=== PATIENT | female | born 1955 | race Hispanic/Latino ===

== ENCOUNTER 2019-11-23 14:02 | Emergency (ER) | payer OTHER, MEDICARE ==
[2019-11-23 14:08] VITALS: BP 106/64
[2019-11-23 16:02] LABS: Basophils # (Auto) 0.1 K/mm3 (0.0-0.1); Basophils % (Auto) 0.4 % (0.0-1.8); Eosinophils # (Auto) 0.2 K/mm3 (0.0-0.4); Eosinophils % (Auto) 1.3 % (0.0-4.3); Hematocrit 46.6 % (30.3-42.9); Hemoglobin 15.8 gm/dl (10.1-14.3); Lymphocytes # (Auto) 3.1 K/mm3 (1.2-5.4); Lymphocytes % (Auto) 22.6 % (13.4-35.0); Mean Corpuscular HGB Conc 34 % (30-34); Mean Corpuscular Volume 96 fl (79-97); Monocytes # (Auto) 0.6 K/mm3 (0.0-0.8); Monocytes % (Auto) 4.4 % (0.0-7.3); Platelet Count 293 K/mm3 (140-440); Red Blood Count 4.83 M/mm3 (3.65-5.03); Red Cell Distribution Width 13.7 % (13.2-15.2)
[2019-11-23] MEDS ORDERED: traMADol 50 MG TAB PO ONE (16:10)
[2019-11-23] MEDS ORDERED: DIPHtheria,PERTUSSIS(ACELL),TETANUS VACCINE/PF 0.5 ML VIAL IM ONE (16:10)
[2019-11-23 16:14] LABS: INR 0.94 (0.87-1.13); Partial Thromboplastin Time 25.2 Sec. (24.2-36.6)
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
[2019-11-23 16:25] LABS: Albumin 4.6 g/dL (3.9-5); Calcium 10.5 mg/dL (8.4-10.2)
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
== END 2019-11-23 20:19 | disposition home or self-care (01) ==
LOC: ED 14:02
DX: S20.319A Abrasion of unspecified front wall of thorax, initial encounter (principal); M25.511 Pain in right shoulder; R10.30 Lower abdominal pain, unspecified; R91.1 Solitary pulmonary nodule; M79.645 Pain in left finger(s); F17.200 Nicotine dependence, unspecified, uncomplicated; Z79.899 Other long term (current) drug therapy; V49.59XA Passenger injured in collision with other motor vehicles in traffic accident, initial encounter; W22.10XA Striking against or struck by unspecified automobile airbag, initial encounter; Y93.89 Activity, other specified; Y92.410 Unspecified street and highway as the place of occurrence of the external cause; Y99.8 Other external cause status
CPT/HCPCS: 36415; 71260; 73030; 73130; 74177; 80053; 83690; 85025; 85610; 85730; 90471; 90715; 99284; Q9967

== ENCOUNTER 2020-10-19 10:25 | Emergency (ER) | payer MEDICARE ==
[2020-10-19 11:11] VITALS: BP 134/65
--- NOTE | 2020-10-19 11:56 | Emergency Department Report ---
- General Chief complaint: Skin Rash Stated complaint: RASH Time Seen by Provider: 10/19/20 11:50 Source: patient Mode of arrival: Ambulatory Limitations: No Limitations - History of Present Illness Initial comments: Patient is a 65-year-old female presents emergency room with complaints of a rash that began 2 weeks ago. She states that the rash itches and mcnally. She states that she has been using cortisone ointment and Benadryl [id number] without much relief. She denies anyone else with the same rash. She states that they did recently just get a new couch and loveseat from another person. she states that also her grandchildren frequently play outside. She denies any new soaps, lotions, detergents, medications, antibiotics. Past medical history of COPD. No allergies to medications. - Related Data Previous Rx's Medication Instructions Recorded Last Taken Type Naproxen [EC-Naprosyn] 500 mg PO BID PRN #14 tablet. 11/23/19 Unknown Rx methOCARBAMOL [Robaxin TAB] 500 mg PO BID PRN #12 tab 11/23/19 Unknown Rx Prednisone [predniSONE 10 mg 10 mg PO .TAPER #1 tab.ds.pk 10/19/20 Unknown Rx (6-Day Pack, 21 Tabs)] Triamcinolone 0.1% [Kenalog 0.1% 1 applic TP TID #1 tube 10/19/20 Unknown Rx CREAM] hydrOXYzine HCL [Atarax] 25 mg PO Q6HR PRN #12 tablet 10/19/20 Unknown Rx Allergies Allergy/AdvReac Type Severity Reaction Status Date / Time No Known Allergies Allergy Unverified 11/23/19 14:03 Abscess Boil HPI - HPI Chief Complaint: Skin Rash Stated Complaint: RASH Time Seen by Provider: 10/19/20 11:50 Home Medications: Previous Rx's Medication Instructions Recorded Last Taken Type Naproxen [EC-Naprosyn] 500 mg PO BID PRN #14 tablet. 11/23/19 Unknown Rx methOCARBAMOL [Robaxin TAB] 500 mg PO BID PRN #12 tab 11/23/19 Unknown Rx Prednisone [predniSONE 10 mg 10 mg PO .TAPER #1 tab.ds.pk 10/19/20 Unknown Rx (6-Day Pack, 21 Tabs)] Triamcinolone 0.1% [Kenalog 0.1% 1 applic TP TID #1 tube 10/19/20 Unknown Rx CREAM] hydrOXYzine HCL [Atarax] 25 mg PO Q6HR PRN #12 tablet 10/19/20 Unknown Rx Allergies/Adverse Reactions: Allergies Allergy/AdvReac Type Severity Reaction Status Date / Time No Known Allergies Allergy Unverified 11/23/19 14:03 ED Review of Systems ROS: Stated complaint: RASH Other details as noted in HPI Comment: All other systems reviewed and negative ED Past Medical Hx - Past Medical History Previous Medical History?: Yes Hx Asthma: Yes Hx COPD: Yes Additional medical history: EMPHYSEMA - Surgical History Past Surgical History?: Yes Additional Surgical History: SINUS / BLADDER, hyst - Social History Smoking Status: Current Every Day Smoker Substance Use Type: None - Medications Home Medications: Home Medications Medication Instructions Recorded Confirmed Last Taken Type Naproxen [EC-Naprosyn] 500 mg PO BID PRN #14 tablet.dr 11/23/19 Unknown Rx methOCARBAMOL [Robaxin TAB] 500 mg PO BID PRN #12 tab 11/23/19 Unknown Rx Prednisone [predniSONE 10 mg 10 mg PO .TAPER #1 tab.ds.pk 10/19/20 Unknown Rx (6-Day Pack, 21 Tabs)] Triamcinolone 0.1% [Kenalog 0.1% 1 applic TP TID #1 tube 10/19/20 Unknown Rx CREAM] hydrOXYzine HCL [Atarax] 25 mg PO Q6HR PRN #12 tablet 10/19/20 Unknown Rx ED Physical Exam - General Limitations: No Limitations General appearance: alert, in no apparent distress - Head Head exam: Present: atraumatic, normocephalic - Eye Eye exam: Present: normal appearance - ENT ENT exam: Present: mucous membranes moist, other (no angioedema) - Respiratory Respiratory exam: Absent: respiratory distress, accessory muscle use - Neurological Exam Neurological exam: Present: alert, oriented X3 - Psychiatric Psychiatric exam: Present: normal affect, normal mood - Skin Skin exam: Present: warm, dry, rash (erythematous macular papular rash present to the chest and right anterior neck there are a few small vesicles, no skin dunuding, no necrosis) ED Course Vital Signs 10/19/20 11:09 Temperature 98.3 F Pulse Rate 72 Respiratory 20 Rate Blood Pressure 134/65 O2 Sat by Pulse 95 Oximetry ED Medical Decision Making - Medical Decision Making Patient is a 65-year-old female presents emergency room with complaints of a rash that began 2 weeks ago. She states that the rash itches and mcnally. She states that she has been using cortisone ointment and Benadryl [id number] without much relief. She denies anyone else with the same rash. She states that they did recently just get a new couch and loveseat from another person. she states that also her grandchildren frequently play outside. She denies any new soaps, lotions, detergents, medications, antibiotics. Past medical history of COPD. No allergies to medications. Vitals are stable. On exam:erythematous macular papular rash present to the chest and right anterior neck there are a few small vesicles, no skin dunuding, no necrosis. Examination appears consistent with a possible poison gi dermatitis. Patient given prescription for medications. Advised patient Please use medication as prescribed. Follow- up with your primary care doctor for reexamination. Return to emergency room immediately for any new or worsening symptoms. Critical care attestation.: If time is entered above; I have spent that time in minutes in the direct care of this critically ill patient, excluding procedure time. ED Disposition Clinical Impression: Rash Disposition: DC-01 TO HOME OR SELFCARE Is pt being admited?: No Does the pt Need Aspirin: No Condition: Stable Instructions: Contact Dermatitis, [id number] Additional Instructions: Please use medication as prescribed. Follow-up with your primary care doctor for reexamination. Return to emergency room immediately for any new or worsening symptoms. Prescriptions: hydrOXYzine HCL [Atarax] 25 mg PO Q6HR PRN #12 tablet PRN Reason: Itching Triamcinolone 0.1% [Kenalog 0.1% CREAM] 1 applic TP TID #1 tube Prednisone [predniSONE 10 mg (6-Day Pack, 21 Tabs)] 10 mg PO .TAPER #1 tab.ds.pk Referrals: your, primary care doctor [Other] - 2-3 Days Time of Disposition: 11:54 Print Language: MALTESE
== END 2020-10-19 12:45 | disposition home or self-care (01) ==
LOC: ED 10:25
DX: R21 Rash and other nonspecific skin eruption (principal); J44.9 Chronic obstructive pulmonary disease, unspecified; F17.200 Nicotine dependence, unspecified, uncomplicated
CPT/HCPCS: 99281

== ENCOUNTER 2020-10-25 09:11 | Emergency (ER) | payer MEDICARE ==
[2020-10-25 09:45] VITALS: BP 148/71
--- NOTE | 2020-10-25 10:42 | Emergency Department Report ---
- General Chief complaint: Skin Rash Stated complaint: RASH Time Seen by Provider: 10/25/20 10:24 Source: patient Mode of arrival: Ambulatory Limitations: No Limitations - History of Present Illness Initial comments: Patient is a 65-year-old female who presents emergency room complaints of a rash to the chest and the neck that began 3 weeks ago. Patient was evaluated in the emergency department approximately a week ago and placed on triamcinolone, prednisone, hydroxyzine. she states that it kept the rash from spreading but has not gone away. She has not seen her primary care doctor or hogshead opener. She states that the rash itches and mcnally. She denies any fever, nausea, vomiting, diarrhea, drainage, chills. Past medical history of COPD. No allergies to medications. - Related Data Previous Rx's Medication Instructions Recorded Last Taken Type Naproxen [EC-Naprosyn] 500 mg PO BID PRN #14 tablet. 11/23/19 Unknown Rx methOCARBAMOL [Robaxin TAB] 500 mg PO BID PRN #12 tab 11/23/19 Unknown Rx Prednisone [predniSONE 10 mg 10 mg PO .TAPER #1 tab.ds.pk 10/19/20 Unknown Rx (6-Day Pack, 21 Tabs)] Triamcinolone 0.1% [Kenalog 0.1% 1 applic TP TID #1 tube 10/19/20 Unknown Rx CREAM] hydrOXYzine HCL [Atarax] 25 mg PO Q6HR PRN #12 tablet 10/19/20 Unknown Rx Allergies Allergy/AdvReac Type Severity Reaction Status Date / Time No Known Allergies Allergy Verified 10/25/20 09:42 Abscess Boil HPI - HPI Chief Complaint: Skin Rash Stated Complaint: RASH Time Seen by Provider: 10/25/20 10:24 Home Medications: Previous Rx's Medication Instructions Recorded Last Taken Type Naproxen [EC-Naprosyn] 500 mg PO BID PRN #14 tablet. 11/23/19 Unknown Rx methOCARBAMOL [Robaxin TAB] 500 mg PO BID PRN #12 tab 11/23/19 Unknown Rx Prednisone [predniSONE 10 mg 10 mg PO .TAPER #1 tab.ds.pk 10/19/20 Unknown Rx (6-Day Pack, 21 Tabs)] Triamcinolone 0.1% [Kenalog 0.1% 1 applic TP TID #1 tube 10/19/20 Unknown Rx CREAM] hydrOXYzine HCL [Atarax] 25 mg PO Q6HR PRN #12 tablet 10/19/20 Unknown Rx Allergies/Adverse Reactions: Allergies Allergy/AdvReac Type Severity Reaction Status Date / Time No Known Allergies Allergy Verified 10/25/20 09:42 ED Review of Systems ROS: Stated complaint: RASH Other details as noted in HPI Comment: All other systems reviewed and negative ED Past Medical Hx - Past Medical History Hx Asthma: Yes Hx COPD: Yes Additional medical history: EMPHYSEMA - Surgical History Additional Surgical History: SINUS / BLADDER, hyst - Social History Smoking Status: Current Every Day Smoker Substance Use Type: None - Medications Home Medications: Home Medications Medication Instructions Recorded Confirmed Last Taken Type Naproxen [EC-Naprosyn] 500 mg PO BID PRN #14 tablet.dr 11/23/19 Unknown Rx methOCARBAMOL [Robaxin TAB] 500 mg PO BID PRN #12 tab 11/23/19 Unknown Rx Prednisone [predniSONE 10 mg 10 mg PO .TAPER #1 tab.ds.pk 10/19/20 Unknown Rx (6-Day Pack, 21 Tabs)] Triamcinolone 0.1% [Kenalog 0.1% 1 applic TP TID #1 tube 10/19/20 Unknown Rx CREAM] hydrOXYzine HCL [Atarax] 25 mg PO Q6HR PRN #12 tablet 10/19/20 Unknown Rx ED Physical Exam - General Limitations: No Limitations General appearance: alert, in no apparent distress - Head Head exam: Present: atraumatic, normocephalic - Eye Eye exam: Present: normal appearance - ENT ENT exam: Present: mucous membranes moist - Neurological Exam Neurological exam: Present: alert, oriented X3 - Psychiatric Psychiatric exam: Present: normal affect, normal mood - Skin Skin exam: Present: warm, dry, other (erythematous maculopapular rash present to the anterior chest and neck, no blistering, no skin denuding, no necrosis, no drainage, no crusting) ED Course Vital Signs 10/25/20 09:45 Temperature 98.1 F Pulse Rate 69 Respiratory 18 Rate Blood Pressure 148/71 O2 Sat by Pulse 97 Oximetry ED Medical Decision Making - Medical Decision Making Patient is a 65-year-old female who presents emergency room complaints of a rash to the chest and the neck that began 3 weeks ago. Patient was evaluated in the emergency department approximately a week ago and placed on triamcinolone, prednisone, hydroxyzine. she states that it kept the rash from spreading but has not gone away. She has not seen her primary care doctor or hogshead opener. She states that the rash itches and mcnally. She denies any fever, nausea, vomiting, diarrhea, drainage, chills. Past medical history of COPD. No allergies to medications. vss. on exam: erythematous maculopapular rash present to the anterior chest and neck, no blistering, no skin denuding, no necrosis, no drainage, no crusting. Patient is not having any muscle weakness. Her vitals are stable, she is not having any constitutional symptoms. Patient evaluated at bedside by Dr. Simpson, ER attending who recommended outpatient dermatology follow-up. Advised patient May use Benadryl ointment [id number]. Follow- up with a hogshead opener. Follow-up with your primary care doctor. Return to emergency room for new or worsening symptoms. - Differential Diagnosis Contact/irritant dermatitis, poison gi dermatitis, dermatomyositis Critical care attestation.: If time is entered above; I have spent that time in minutes in the direct care of this critically ill patient, excluding procedure time. ED Disposition Clinical Impression: Rash Disposition: DC-01 TO HOME OR SELFCARE Is pt being admited?: No Does the pt Need Aspirin: No Condition: Stable Instructions: Rash, Adult, [id number] Additional Instructions: May use Benadryl ointment [id number]. Follow-up with a hogshead opener. Follow-up with your primary care doctor. Return to emergency room for new or worsening symptoms. Platform Inspector: Javier Crouch MD Address: [address] [place] [address] [id number] Referrals: PRIMARY CAREMD [Referring] - 2-3 Days Time of Disposition: 10:40 Print Language: AMERICAN
== END 2020-10-25 11:11 | disposition home or self-care (01) ==
LOC: ED 09:11
DX: R21 Rash and other nonspecific skin eruption (principal); J44.9 Chronic obstructive pulmonary disease, unspecified; F17.200 Nicotine dependence, unspecified, uncomplicated; Z79.899 Other long term (current) drug therapy; Z98.890 Other specified postprocedural states
CPT/HCPCS: 99281

== ENCOUNTER 2020-12-08 10:27 | Emergency (ER) | payer MEDICARE ==
--- NOTE | 2020-12-08 12:31 | Event Note ---
ED Screening Note Date of service: 12/08/20 Time: 12:30 ED Screening Note: Patient complains of sudden onset of weakness fatigue x2 days States some decreased urination History of COPD and emphysema states her normal shortness of breath and cough without any new changes This initial assessment/diagnostic orders/clinical plan/treatment(s) is/are subject to change based on patients health status, clinical progression and re- assessment by fellow clinical providers in the ED. Further treatment and workup at subsequent clinical providers discretion. Patient/guardian urged not to elope from the ED as their condition may be serious if not clinically assessed and managed. Initial orders include: Labs EKG
[2020-12-08 12:39] VITALS: BP 104/47
--- NOTE | 2020-12-08 13:40 | XRay Report ---
XR chest routine 2V INDICATION / CLINICAL INFORMATION: cough. COMPARISON: CT from 11/21/2019. FINDINGS: SUPPORT DEVICES: None. HEART /PULMONARY VASCULATURE: No significant abnormality. LUNGS / PLEURA: The lungs are hyperexpanded. Prominent bullous changes are again seen within the lung bases, more pronounced on the right, with linear scarring in the right lung base. No suspicious pulm onary nodule. No acute airspace consolidation. No pleural effusion or pneumothorax. ADDITIONAL FINDINGS: No significant additional findings. IMPRESSION: No acute findings. No interval change from prior CT from 11/23/2019. Signer Name: Loyd Dang MD Signed: 12/08/2020 1:36 PM Workstation Name: [id number]
[2020-12-08 14:55] LABS: Basophils % (Auto) 0.3 % (0.0-1.8); Eosinophils # (Auto) 0.1 K/mm3 (0.0-0.4); Eosinophils % (Auto) 1.1 % (0.0-4.3); Hematocrit 43.9 % (30.3-42.9); Hemoglobin 15.1 gm/dl (10.1-14.3); Lymphocytes # (Auto) 1.4 K/mm3 (1.2-5.4); Lymphocytes % (Auto) 23.8 % (13.4-35.0); Mean Corpuscular HGB Conc 34 % (30-34); Mean Corpuscular Volume 97 fl (79-97); Monocytes # (Auto) 0.3 K/mm3 (0.0-0.8); Platelet Count 184 K/mm3 (140-440); Red Blood Count 4.53 M/mm3 (3.65-5.03); Red Cell Distribution Width 13.7 % (13.2-15.2)
[2020-12-08 15:05] LABS: Alanine Aminotransferase 12 units/L (7-56); Albumin 3.6 g/dL (3.9-5); BUN/Creatinine Ratio 15; Blood Urea Nitrogen 15 mg/dL (7-17); Calcium 9.3 mg/dL (8.4-10.2); Hemolysis Index 14
[2020-12-08 21:45] LABS: Bacteria,Urine 4+ /HPF (Negative); Bilirubin,Urine SM (Negative); Blood,Urine MOD (Negative); Color,Urine Amber (Yellow); Mucus,Urine 3+ /HPF
[2020-12-08 21:52] LABS: Ictotest,Urine Negative (Negative)
--- NOTE | 2020-12-09 10:42 | Electrocardiograph Report ---
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
== END 2020-12-08 13:13 ==
LOC: ED 10:27
DX: R53.1 Weakness (principal); Z53.21 Procedure and treatment not carried out due to patient leaving prior to being seen by health care provider
CPT/HCPCS: 36415; 71046; 80053; 81001; 84484; 85025; 93005

== ENCOUNTER 2020-12-28 09:58 | Outpatient (CLI) | payer MEDICARE ==
[2020-12-28 10:46] LABS: Bacteria,Urine 1+ /HPF (Negative); Bilirubin,Urine NEG (Negative); Blood,Urine MOD (Negative); Color,Urine Yellow (Yellow); Mucus,Urine FEW /HPF; Protein,Urine <15 mg/dL mg/dL (Negative); Urobilinogen,Urine < 2.0 mg/dL (<2.0)
[2020-12-28 10:48] LABS: Basophils # (Auto) 0.1 K/mm3 (0.0-0.1); Basophils % (Auto) 1.1 % (0.0-1.8); Eosinophils # (Auto) 0.3 K/mm3 (0.0-0.4); Lymphocytes # (Auto) 1.9 K/mm3 (1.2-5.4); Lymphocytes % (Auto) 20.6 % (13.4-35.0); Mean Corpuscular HGB Conc 34 % (30-34); Mean Corpuscular Volume 98 fl (79-97); Monocytes # (Auto) 0.6 K/mm3 (0.0-0.8); Platelet Count 257 K/mm3 (140-440); Red Cell Distribution Width 13.5 % (13.2-15.2)
[2020-12-28 10:55] LABS: Alanine Aminotransferase 18 units/L (7-56); Albumin 3.9 g/dL (3.9-5); BUN/Creatinine Ratio 10; Blood Urea Nitrogen 9 mg/dL (7-17); Calcium 10.2 mg/dL (8.4-10.2); Chol/HDL Ratio 6.38 %; HDL Cholesterol 36 mg/dL (40-59); Hemolysis Index 1; LDL Cholesterol,Direct 182 mg/dL (50-130)
== END 2020-12-28 09:59 | disposition home or self-care (01) ==
LOC: LAB 09:58
PROVIDERS: ATTEND Internal Medicine
DX: Z13.29 Encounter for screening for other suspected endocrine disorder (principal); Z00.00 Encounter for general adult medical examination without abnormal findings; R73.9 Hyperglycemia, unspecified; E55.9 Vitamin D deficiency, unspecified; N39.0 Urinary tract infection, site not specified; E78.5 Hyperlipidemia, unspecified
CPT/HCPCS: 36415; 80053; 80061; 81001; 82306; 83036; 84443; 85025; 87086

== ENCOUNTER 2021-05-03 10:16 | Outpatient (CLI) | payer MEDICARE ==
[2021-05-03 10:45] LABS: Bilirubin,Urine NEG (Negative); Blood,Urine MOD (Negative); Color,Urine Yellow (Yellow); Mucus,Urine FEW /HPF; Protein,Urine <15 mg/dL mg/dL (Negative); Urobilinogen,Urine < 2.0 mg/dL (<2.0)
[2021-05-03 11:00] LABS: Chol/HDL Ratio 6.81 %
== END 2021-05-03 10:17 | disposition home or self-care (01) ==
LOC: LAB 10:16
PROVIDERS: ATTEND Internal Medicine
DX: N39.0 Urinary tract infection, site not specified (principal); E78.5 Hyperlipidemia, unspecified
CPT/HCPCS: 36415; 80061; 81001

== ENCOUNTER 2021-06-23 08:43 | Outpatient (CLI) | payer MEDICARE ==
--- NOTE | 2021-06-23 12:31 | Vascular Lab Report ---
DUPLEX DOPPLER LOWER EXTREMITY ARTERIAL, BILATERAL INDICATION / CLINICAL INFORMATION: R23.1 PALLOR. TECHNIQUE: Arterial duplex examination of both lower extremities performed using B-mode, color flow a nd spectral Doppler assessment. FINDINGS: RIGHT: - Atherosclerotic Plaque: Mild atherosclerotic plaque. - Elevated Velocity (>200 cm/s): None. - Abnormal Waveform: Monophasic waveform within the dorsalis pedis artery. LEFT: - Atherosclerotic Plaque: Mild atherosclerotic plaque. - Elevated Velocity (>200 cm/s): None. - Abnormal Waveform: Monophasic waveforms within the anterior tibial and dorsalis pedis arteries. ADDITIONAL FINDINGS: None. Right GASPER: Not calculated. Left GASPER: Not calculated. IMPRESSION: 1. Findings suggestive of mild bilateral peripheral arterial disease, including monophasic waveforms within the left anterior tibial and bilateral dorsalis pedis arteries. Ankle-Brachial Index (GASPER): - Calcified arteries > 1.4 - Normal = 0.9-1.4 - Mild PAD = 0.7-0.89 - Moderate PAD = 0.51-0.69 - Severe PAD < 0.5 Doppler Waveform: - Triphasic is normal. - Biphasic is abnormal if clear transition from triphasic signal along vascular tree. - Monophasic is abnormal. Scribed by: Ana Graves RDMS, RVT, TOSHIAKS Scribed: 06/23/2021 11:06 AM I have reviewed the images, agree with this report, and edited this report as needed. Signer Name: Ortiz Roy MD Signed: 06/23/2021 12:26 PM Workstation Name: [id number]
== END 2021-06-23 08:44 | disposition home or self-care (01) ==
LOC: VAS 08:43
PROVIDERS: ATTEND Internal Medicine
DX: I70.203 Unspecified atherosclerosis of native arteries of extremities, bilateral legs (principal); R23.1 Pallor
CPT/HCPCS: 93925